=== PATIENT | female | born 1965 | race American Indian/Alaskan Native ===

== ENCOUNTER 2017-08-04 16:49 | Emergency (ER) | payer OTHER ==
[2017-08-04 18:20] LABS: Basophils # (Auto) 0.1 K/mm3 (0.0-0.1); Eosinophils # (Auto) 0.1 K/mm3 (0.0-0.4); Eosinophils % (Auto) 0.8 % (0.0-4.3); Hematocrit 41.1 % (30.3-42.9); Hemoglobin 13.6 gm/dl (10.1-14.3); Lymphocytes # (Auto) 2.2 K/mm3 (1.2-5.4); Mean Corpuscular HGB Conc 33 % (30-34); Mean Corpuscular Hemoglobin 34 pg (28-32); Mean Corpuscular Volume 103 fl (79-97); Monocytes # (Auto) 0.5 K/mm3 (0.0-0.8); Monocytes % (Auto) 6.7 % (0.0-7.3); Platelet Count 285 K/mm3 (140-440); Red Blood Count 3.98 M/mm3 (3.65-5.03); Red Cell Distribution Width 12.7 % (13.2-15.2)
[2017-08-04 18:32] LABS: BUN/Creatinine Ratio 20; Blood Urea Nitrogen 12 mg/dL (7-17); Calcium 9.3 mg/dL (8.4-10.2); Hemolysis Index 3
[2017-08-04 18:37] LABS: Albumin 4.5 g/dL (3.9-5); Bilirubin,Direct 0.3 mg/dL (0-0.2)
[2017-08-04 18:45] LABS: HCG Qualitative,Urine Negative (Negative)
--- NOTE | 2017-08-04 18:48 | Emergency Department Report ---
ED Psych HPI - General Chief Complaint: Psych Stated Complaint: SUCIDAL Time Seen by Provider: 08/04/17 17:56 Source: patient, EMS Mode of arrival: Ambulatory - History of Present Illness Initial Comments: Patient has long history of depression. However she is only taking Wellbutrin for now. She called her therapist and expressed suicidal ideation. She admitted to taking 6 shots last night and 4 shots this morning. She states that she has previously been in detox for alcohol abuse but now does not consistently drink. She admits to binge drinking however. She admits suicidal ideation. She told the police or N nurse that she took an overdose of melatonin. She is not admitting to me any overdose. The patient has had previous psychiatric admissions. 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 MD Complaint: suicidal ideation, feels depressed -: year(s) Associated Psychiatric Symptoms: depression, suicidal ideation History of same: Yes Quality: intermittent Improves With: none Worsens With: none Context: recent alcohol abuse Associated Symptoms: vomiting Treatments Prior to Arrival: none - Related Data Home Medications Medication Instructions Recorded Confirmed Last Taken Wellbutrin 08/04/17 Unknown amLODIPine 08/04/17 Unknown ED Review of Systems ROS: Stated complaint: SUCIDAL Other details as noted in HPI Constitutional: denies: chills, fever Eyes: denies: eye pain, eye discharge, vision change ENT: denies: ear pain, throat pain Respiratory: denies: cough, shortness of breath, wheezing Cardiovascular: denies: chest pain, palpitations Endocrine: no symptoms reported Gastrointestinal: vomiting. denies: abdominal pain, nausea (not currently), diarrhea Genitourinary: denies: urgency, dysuria, discharge Musculoskeletal: denies: back pain, joint swelling, arthralgia Skin: denies: rash, lesions Neurological: denies: headache, weakness, paresthesias Psychiatric: depression, suicidal thoughts. denies: anxiety Hematological/Lymphatic: denies: easy bleeding, easy bruising ED Past Medical Hx - Past Medical History Hx Psychiatric Treatment: Yes - Social History Smoking Status: Current Every Day Smoker Substance Use Type: Alcohol - Medications Home Medications: Home Medications Medication Instructions Recorded Confirmed Last Taken Type Wellbutrin 08/04/17 Unknown History amLODIPine 08/04/17 Unknown History ED Physical Exam - General Limitations: No Limitations General appearance: alert, in no apparent distress, other (tearful) - Head Head exam: Present: atraumatic, normocephalic - Eye Eye exam: Present: normal appearance, PERRL, EOMI. Absent: scleral icterus - ENT ENT exam: Present: mucous membranes moist - Neck Neck exam: Present: normal inspection. Absent: tenderness, meningismus - Respiratory Respiratory exam: Present: normal lung sounds bilaterally. Absent: respiratory distress - Cardiovascular Cardiovascular Exam: Present: regular rate, normal rhythm. Absent: systolic murmur, diastolic murmur, rubs, gallop - GI/Abdominal GI/Abdominal exam: Present: soft, normal bowel sounds. Absent: distended, tenderness, guarding, rebound, rigid - Extremities Exam Extremities exam: Present: normal inspection - Back Exam Back exam: Present: normal inspection - Neurological Exam Neurological exam: Present: alert, oriented X3, CN II-XII intact. Absent: motor sensory deficit - Psychiatric Psychiatric exam: Present: depressed, anxious - Skin Skin exam: Present: warm, dry, intact, normal color. Absent: rash ED Course Vital Signs 08/04/17 17:56 Temperature 98.2 F Pulse Rate 98 H Respiratory 18 Rate Blood Pressure 142/100 O2 Sat by Pulse 97 Oximetry - Reevaluation(s) Reevaluation #1: 1013. Referred to mental health for psychiatric placement. 08/04/17 18:47 ED Medical Decision Making - Lab Data Result diagrams: 08/04/17 18:07 08/04/17 18:07 Laboratory Results - last 24 hr 08/04/17 08/04/17 08/04/17 18:00 18:07 18:07 WBC 7.7 RBC 3.98 Hgb 13.6 Hct 41.1 MCV 103 H MCH 34 H MCHC 33 RDW 12.7 L Plt Count 285 Lymph % (Auto) 28.0 [place] % (Auto) 6.7 Eos % (Auto) 0.8 Baso % (Auto) 1.0 Lymph # 2.2 [place] # 0.5 Eos # 0.1 Baso # 0.1 Seg Neutrophils % 63.5 Seg Neutrophils # 4.9 Sodium 142 Potassium 3.6 Chloride 95.9 L Carbon Dioxide 23 Anion Gap 27 BUN 12 Creatinine 0.6 L Estimated GFR > 60 BUN/Creatinine Ratio 20 Glucose 84 Calcium 9.3 Total Bilirubin Direct Bilirubin Indirect Bilirubin AST ALT Alkaline Phosphatase Total Protein Albumin Albumin/Globulin Ratio TSH Urine HCG, Qual Negative 08/04/17 08/04/17 18:07 18:07 WBC RBC Hgb Hct MCV MCH MCHC RDW Plt Count Lymph % (Auto) [place] % (Auto) Eos % (Auto) Baso % (Auto) Lymph # [place] # Eos # Baso # Seg Neutrophils % Seg Neutrophils # Sodium Potassium Chloride Carbon Dioxide Anion Gap BUN Creatinine Estimated GFR BUN/Creatinine Ratio Glucose Calcium Total Bilirubin 0.50 Direct Bilirubin 0.3 H Indirect Bilirubin 0.2 AST 149 H ALT 107 H Alkaline Phosphatase 64 Total Protein 8.4 H Albumin 4.5 Albumin/Globulin Ratio 1.2 TSH 3.280 Urine HCG, Qual Laboratory Results - last 24 hr 08/04/17 08/04/17 08/04/17 18:00 18:07 18:07 WBC 7.7 RBC 3.98 Hgb 13.6 Hct 41.1 MCV 103 H MCH 34 H MCHC 33 RDW 12.7 L Plt Count 285 Lymph % (Auto) 28.0 [place] % (Auto) 6.7 Eos % (Auto) 0.8 Baso % (Auto) 1.0 Lymph # 2.2 [place] # 0.5 Eos # 0.1 Baso # 0.1 Seg Neutrophils % 63.5 Seg Neutrophils # 4.9 Sodium 142 Potassium 3.6 Chloride 95.9 L Carbon Dioxide 23 Anion Gap 27 BUN 12 Creatinine 0.6 L Estimated GFR > 60 BUN/Creatinine Ratio 20 Glucose 84 Calcium 9.3 Total Bilirubin Direct Bilirubin Indirect Bilirubin AST ALT Alkaline Phosphatase Total Protein Albumin Albumin/Globulin Ratio TSH Urine HCG, Qual Negative Salicylates 08/04/17 08/04/17 08/04/17 18:07 18:07 18:07 WBC RBC Hgb Hct MCV MCH MCHC RDW Plt Count Lymph % (Auto) [place] % (Auto) Eos % (Auto) Baso % (Auto) Lymph # [place] # Eos # Baso # Seg Neutrophils % Seg Neutrophils # Sodium Potassium Chloride Carbon Dioxide Anion Gap BUN Creatinine Estimated GFR BUN/Creatinine Ratio Glucose Calcium Total Bilirubin 0.50 Direct Bilirubin 0.3 H Indirect Bilirubin 0.2 AST 149 H ALT 107 H Alkaline Phosphatase 64 Total Protein 8.4 H Albumin 4.5 Albumin/Globulin Ratio 1.2 TSH 3.280 Urine HCG, Qual Salicylates < 0.3 L Laboratory Results - last 24 hr 08/04/17 08/04/17 08/04/17 18:00 18:07 18:07 WBC 7.7 RBC 3.98 Hgb 13.6 Hct 41.1 MCV 103 H MCH 34 H MCHC 33 RDW 12.7 L Plt Count 285 Lymph % (Auto) 28.0 [place] % (Auto) 6.7 Eos % (Auto) 0.8 Baso % (Auto) 1.0 Lymph # 2.2 [place] # 0.5 Eos # 0.1 Baso # 0.1 Seg Neutrophils % 63.5 Seg Neutrophils # 4.9 Sodium 142 Potassium 3.6 Chloride 95.9 L Carbon Dioxide 23 Anion Gap 27 BUN 12 Creatinine 0.6 L Estimated GFR > 60 BUN/Creatinine Ratio 20 Glucose 84 Calcium 9.3 Total Bilirubin Direct Bilirubin Indirect Bilirubin AST ALT Alkaline Phosphatase Total Protein Albumin Albumin/Globulin Ratio TSH Urine HCG, Qual Negative Salicylates 08/04/17 08/04/17 08/04/17 18:07 18:07 18:07 WBC RBC Hgb Hct MCV MCH MCHC RDW Plt Count Lymph % (Auto) [place] % (Auto) Eos % (Auto) Baso % (Auto) Lymph # [place] # Eos # Baso # Seg Neutrophils % Seg Neutrophils # Sodium Potassium Chloride Carbon Dioxide Anion Gap BUN Creatinine Estimated GFR BUN/Creatinine Ratio Glucose Calcium Total Bilirubin 0.50 Direct Bilirubin 0.3 H Indirect Bilirubin 0.2 AST 149 H ALT 107 H Alkaline Phosphatase 64 Total Protein 8.4 H Albumin 4.5 Albumin/Globulin Ratio 1.2 TSH 3.280 Urine HCG, Qual Salicylates < 0.3 L Laboratory Results - last 24 hr 08/04/17 08/04/17 08/04/17 18:00 18:00 18:07 WBC 7.7 RBC 3.98 Hgb 13.6 Hct 41.1 MCV 103 H MCH 34 H MCHC 33 RDW 12.7 L Plt Count 285 Lymph % (Auto) 28.0 [place] % (Auto) 6.7 Eos % (Auto) 0.8 Baso % (Auto) 1.0 Lymph # 2.2 [place] # 0.5 Eos # 0.1 Baso # 0.1 Seg Neutrophils % 63.5 Seg Neutrophils # 4.9 Sodium Potassium Chloride Carbon Dioxide Anion Gap BUN Creatinine Estimated GFR BUN/Creatinine Ratio Glucose Calcium Total Bilirubin Direct Bilirubin Indirect Bilirubin AST ALT Alkaline Phosphatase Total Protein Albumin Albumin/Globulin Ratio TSH Urine Color Yellow Urine Turbidity Clear Urine pH 6.0 Ur Specific [place] 1.017 Urine Protein 30 mg/dl Urine Glucose (UA) Neg Urine Ketones Tr Urine Blood Sm Urine Nitrite Neg Ur Reducing Substances Not Reportable Urine Bilirubin Mod Urine Ictotest Positive Urine Urobilinogen 4.0 Ur Leukocyte Esterase Tr Urine WBC (Auto) 4.0 Urine RBC (Auto) 3.0 U Epithel Cells (Auto) 6.0 Urine Bacteria (Auto) 1+ Urine Mucus Few Urine Yeast (Budding) Few Urine HCG, Qual Negative Salicylates Urine Opiates Screen Presumptive negative Urine Methadone Screen Presumptive negative Acetaminophen Ur Barbiturates Screen Presumptive negative Ur Phencyclidine Scrn Presumptive negative Ur Amphetamines Screen Presumptive negative U Benzodiazepines Scrn Presumptive negative Urine Cocaine Screen Presumptive negative U Marijuana (THC) Screen Presumptive negative Drugs of Abuse Note Disclamer Plasma/Serum Alcohol 08/04/17 08/04/17 08/04/17 18:07 18:07 18:07 WBC RBC Hgb Hct MCV MCH MCHC RDW Plt Count Lymph % (Auto) [place] % (Auto) Eos % (Auto) Baso % (Auto) Lymph # [place] # Eos # Baso # Seg Neutrophils % Seg Neutrophils # Sodium 142 Potassium 3.6 Chloride 95.9 L Carbon Dioxide 23 Anion Gap 27 BUN 12 Creatinine 0.6 L Estimated GFR > 60 BUN/Creatinine Ratio 20 Glucose 84 Calcium 9.3 Total Bilirubin Direct Bilirubin Indirect Bilirubin AST ALT Alkaline Phosphatase Total Protein Albumin Albumin/Globulin Ratio TSH Urine Color Urine Turbidity Urine pH Ur Specific [place] Urine Protein Urine Glucose (UA) Urine Ketones Urine Blood Urine Nitrite Ur Reducing Substances Urine Bilirubin Urine Ictotest Urine Urobilinogen Ur Leukocyte Esterase Urine WBC (Auto) Urine RBC (Auto) U Epithel Cells (Auto) Urine Bacteria (Auto) Urine Mucus Urine Yeast (Budding) Urine HCG, Qual Salicylates < 0.3 L Urine Opiates Screen Urine Methadone Screen Acetaminophen < 5.0 L Ur Barbiturates Screen Ur Phencyclidine Scrn Ur Amphetamines Screen U Benzodiazepines Scrn Urine Cocaine Screen U Marijuana (THC) Screen Drugs of Abuse Note Plasma/Serum Alcohol 08/04/17 08/04/17 08/04/17 18:07 18:07 18:07 WBC RBC Hgb Hct MCV MCH MCHC RDW Plt Count Lymph % (Auto) [place] % (Auto) Eos % (Auto) Baso % (Auto) Lymph # [place] # Eos # Baso # Seg Neutrophils % Seg Neutrophils # Sodium Potassium Chloride Carbon Dioxide Anion Gap BUN Creatinine Estimated GFR BUN/Creatinine Ratio Glucose Calcium Total Bilirubin 0.50 Direct Bilirubin 0.3 H Indirect Bilirubin 0.2 AST 149 H ALT 107 H Alkaline Phosphatase 64 Total Protein 8.4 H Albumin 4.5 Albumin/Globulin Ratio 1.2 TSH 3.280 Urine Color Urine Turbidity Urine pH Ur Specific [place] Urine Protein Urine Glucose (UA) Urine Ketones Urine Blood Urine Nitrite Ur Reducing Substances Urine Bilirubin Urine Ictotest Urine Urobilinogen Ur Leukocyte Esterase Urine WBC (Auto) Urine RBC (Auto) U Epithel Cells (Auto) Urine Bacteria (Auto) Urine Mucus Urine Yeast (Budding) Urine HCG, Qual Salicylates Urine Opiates Screen Urine Methadone Screen Acetaminophen Ur Barbiturates Screen Ur Phencyclidine Scrn Ur Amphetamines Screen U Benzodiazepines Scrn Urine Cocaine Screen U Marijuana (THC) Screen Drugs of Abuse Note Plasma/Serum Alcohol 0.31 H Critical care attestation.: If time is entered above; I have spent that time in minutes in the direct care of this critically ill patient, excluding procedure time. ED Disposition Clinical Impression: Suicidal ideation, Alcohol abuse, Elevated transaminase level Depression Qualifiers: Depression Type: major depressive disorder Major depression recurrence: recurrent Active/Remission status: currently active Major depression episode severity: severe Psychotic features: without psychotic features Qualified Code(s ): F33.2 - Major depressive disorder, recurrent severe without psychotic features Disposition: DC/TX-65 PSY HOSP/PSY UNIT Is pt being admited?: No Does the pt Need Aspirin: No Condition: Stable Time of Disposition: 19:48
[2017-08-04 19:04] LABS: Bacteria,Urine 1+ /HPF (Negative); Mucus,Urine FEW /HPF
[2017-08-04 19:08] LABS: Bilirubin,Urine MOD (Negative); Blood,Urine SM (Negative); Color,Urine Yellow (Yellow)
[2017-08-04 19:20] LABS: Amphetamine Screen,Urine PRESUMPTIVE NEGATIVE; Benzodiazepines Screen,Urine PRESUMPTIVE NEGATIVE; Cannabinoid Screen,Urine PRESUMPTIVE NEGATIVE; Cocaine Screen,Urine PRESUMPTIVE NEGATIVE; Methadone Screen,Urine PRESUMPTIVE NEGATIVE; Opiate Screen,Urine PRESUMPTIVE NEGATIVE
[2017-08-04 19:22] LABS: Ictotest,Urine Positive (Negative)
[2017-08-04] MEDS ORDERED: MILK OF MAGNESIA PO PRN (19:44)
[2017-08-04] MEDS ORDERED: TYLENOL PO PRN (19:44)
[2017-08-04] MEDS ORDERED: ALUM-MAG HYDROX-SIMETH 200-200-20MG/5ML PO PRN (19:44)
[2017-08-05] MEDS ORDERED: PEPCID PO PRN (00:19)
[2017-08-05] MEDS: ZOFRAN IV PRN (04:44)
[2017-08-05] MEDS: ATIVAN PO PRN ×3 (04:44→22:50)
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
[2017-08-06] MEDS: ATIVAN PO PRN ×2 (14:33→21:05)
[2017-08-06] MEDS ORDERED: TYLENOL PO ONE (17:25)
[2017-08-06 19:06] LABS: Alanine Aminotransferase 83 units/L (7-56); Albumin 4.1 g/dL (3.9-5); BUN/Creatinine Ratio 16; Blood Urea Nitrogen 11 mg/dL (7-17); Calcium 9.6 mg/dL (8.4-10.2); Hemolysis Index 0
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
[2017-08-06] MEDS: ZOFRAN IV PRN (21:10)
--- NOTE | 2017-08-07 13:17 | Progress Note ---
Subjective - Reason for Consult Consult date: 08/07/17 Reason for consult: Psychiatry Follow-up - Chief Complaint Chief complaint: "I need help" 51 year old AA female present to the ER for suicidal ideation, alcohol intoxication, and taking multiple melatonin. Today the patient is calm and cooperative, but withdrawn during the assessment. She stated that she has a lot going on with her life. She acknowledged a hx depression. She could not confirm or deny SI's when asked. She stated that her alcohol consumption has increased the past few months. She stated, "I need help seriously." She denies HI's and AVH's. She stated that she is sleeping "okay." She stated that she don't mind starting Zoloft, a home medication she took in the past. Mental Status Exam - Vital signs Last Vital Signs Temp 98.5 F 08/06/17 22:00 Pulse 92 H 08/06/17 22:00 Resp 18 08/06/17 22:00 BP 148/98 08/06/17 22:00 Pulse Ox 100 08/06/17 22:00 - Exam Narrative exam: MSE: Appearance: calm, cooperative Behavior: regular eye contact Speech: regular rate and tone Mood: "depressed" withdrawn Affect: congruent to mood Thought Process: circumstantial Thought Content: denies HI's and AVH's, cannot confirm or deny SI's Motor Activity: sitting up in bed Cognition: A/O x3 Insight: variable Judgment: variable Assessment and Plan Impression: MDD, recurrent Severe Type. Hx of PTSD. Alcohol use DO. Today the patient is calm and cooperative, but withdrawn during the assessment. DDx: R/O Bipolar DO, Alcohol Induced Mood DO Recommendation/Plan: Continue 1013 with pending placement to [facility]. Start Zoloft 50 mg PO daily for depression/PTSD. Discussed possible suicidality/ medication induced bon with patient reference Zoloft.
[2017-08-07] MEDS: ZOLOFT PO SCH (15:30)
[2017-08-07] MEDS: ATIVAN PO PRN (15:55)
--- NOTE | 2017-08-08 10:57 | Progress Note ---
Subjective - Reason for Consult Consult date: 08/08/17 Reason for consult: Psychiatry Follow-up - Chief Complaint Chief complaint: "Why me" 51 year old AA female present to the ER for suicidal ideation, alcohol intoxication, and taking multiple melatonin. Today the patient is calm and cooperative, but still withdrawn during the assessment. She stated that it's hard dealing with her current situation. She stated she don't know what to do at this time to lessen her worries. She cannot confirm or deny SI's when asked. She denies HI's and AVH's. She denies any side effects of her medications. Mental Status Exam - Vital signs Last Vital Signs Temp 98 F 08/07/17 22:31 Pulse 87 08/08/17 06:25 Resp 18 08/08/17 06:26 BP 143/79 08/08/17 06:25 Pulse Ox 98 08/07/17 22:35 - Exam Narrative exam: MSE: Appearance: calm, cooperative Behavior: regular eye contact Speech: regular rate and tone Mood: "depressed" withdrawn, emotional Affect: congruent to mood Thought Process: circumstantial Thought Content: denies HI's and AVH's, cannot confirm or deny SI's Motor Activity: sitting up in bed Cognition: A/O x3 Insight: variable Judgment: variable Assessment and Plan Impression: MDD, recurrent Severe Type. Hx of PTSD. Alcohol use DO. Today the patient is calm and cooperative, but withdrawn during the assessment. DDx: R/O Bipolar DO, Alcohol Induced Mood DO Recommendation/Plan: Continue 1013 with placement to inpatient psy services. Continue Zoloft 50 mg PO daily for depression/PTSD. Discussed possible suicidality/medication induced bon with patient reference Zoloft.
[2017-08-08] MEDS ORDERED: ZOFRAN ODT PO ONE (11:12)
[2017-08-08] MEDS: ZOLOFT PO SCH (11:30)
[2017-08-08] MEDS: ATIVAN PO PRN (11:31)
[2017-08-08 11:48] VITALS: BP 150/99
== END 2017-08-08 13:22 ==
LOC: EEVIPCON 16:49 → ED 16:49
DX: T50.992A Poisoning by other drugs, medicaments and biological substances, intentional self-harm, initial encounter (principal); F32.9 Major depressive disorder, single episode, unspecified; R74.0 Nonspecific elevation of levels of transaminase and lactic acid dehydrogenase [LDH]; F17.200 Nicotine dependence, unspecified, uncomplicated; F10.10 Alcohol abuse, uncomplicated; Y92.89 Other specified places as the place of occurrence of the external cause
CPT/HCPCS: 36415; 80048; 80053; 80074; 80307; 81001; 81025; 82140; 84443; 85025; 96374; 99285; G0480; J2405; 80320; Q0162

== ENCOUNTER 2019-08-13 05:29 | Emergency (ER) | payer OTHER ==
[2019-08-13] MEDS ORDERED: KETOROLAC 30 MG/1 ML INJ ONE (05:41)
[2019-08-13] MEDS ORDERED: KETOROLAC 30 MG/1 ML INJ IV ONE (05:51)
[2019-08-13] MEDS ORDERED: MORPHINE 4 MG/1 ML INJ IV ONE ×2 (06:03→07:38)
[2019-08-13] MEDS ORDERED: ONDANSETRON 4 MG/2 ML INJ IV ONE (06:05)
[2019-08-13 06:06] LABS: Basophils # (Auto) 0.1 K/mm3 (0.0-0.1); Basophils % (Auto) 0.6 % (0.0-1.8); Eosinophils # (Auto) 0.1 K/mm3 (0.0-0.4); Hematocrit 40.2 % (30.3-42.9); Hemoglobin 13.4 gm/dl (10.1-14.3); Lymphocytes % (Auto) 25.1 % (13.4-35.0); Mean Corpuscular HGB Conc 33 % (30-34); Mean Corpuscular Volume 100 fl (79-97); Monocytes # (Auto) 0.5 K/mm3 (0.0-0.8); Monocytes % (Auto) 3.9 % (0.0-7.3); Platelet Count 411 K/mm3 (140-440); Red Cell Distribution Width 11.7 % (13.2-15.2)
[2019-08-13] MEDS ORDERED: ONDANSETRON 4 MG/2 ML INJ ONE (06:06)
--- NOTE | 2019-08-13 06:23 | XRay Report ---
ABDOMEN 2 VIEWS INDICATION / CLINICAL INFORMATION: LLQ abd pain. COMPARISON: None available. FINDINGS: Nonspecific bowel gas pattern. No evidence of obstruction or pneumoperitoneum. Signer Name: Blake Feldman MD FACR Signed: 08/13/2019 6:18 AM Workstation Name: [id number]
[2019-08-13 06:25] LABS: Alanine Aminotransferase 15 units/L (7-56); Albumin 4.5 g/dL (3.9-5); BUN/Creatinine Ratio 16; Blood Urea Nitrogen 11 mg/dL (7-17); Calcium 9.1 mg/dL (8.4-10.2); Hemolysis Index 15
--- NOTE | 2019-08-13 07:02 | Emergency Department Report ---
Chief Complaint: Back Pain/Injury Stated Complaint: KIDNEY STONES - HPI History of Present Illness: Patient presents with a for the left lower quadrant abdominal pain. She denies any fever, nausea, vomiting, diarrhea, vaginal bleeding or discharge. History of alcohol abuse. - Exam Vital Signs: Vital Signs 08/13/19 08/13/19 08/13/19 05:39 05:52 05:53 Temperature 97.6 F Pulse Rate 96 H Respiratory 20 18 Rate Blood Pressure 159/97 O2 Sat by Pulse 98 100 Oximetry 08/13/19 08/13/19 08/13/19 06:00 06:07 06:10 Temperature Pulse Rate Respiratory 18 Rate Blood Pressure 151/104 163/103 O2 Sat by Pulse 98 99 Oximetry 08/13/19 06:20 Temperature Pulse Rate Respiratory Rate Blood Pressure 138/84 O2 Sat by Pulse 89 Oximetry MSE screening note: Focused history and physical exam performed. Due to findings the following was ordered: Patient given a dose of Toradol and morphine. CBC and metabolic panel are unremarkable. Lipase is slightly elevated. Awaiting urine sample for urinalysis. CT scan of the abdomen and pelvis has been ordered. Abdominal x-ray shows nonspecific nonobstructive bowel gas ED Medical Decision Making - Lab Data Result diagrams: 08/13/19 05:50 08/13/19 05:50 ED Disposition for MSE Condition: Stable Referrals: PRIMARY CARE, [Primary Care Provider] - 3-5 Days
--- NOTE | 2019-08-13 07:37 | Cat Scan Report ---
CT abdomen pelvis wo con INDICATION / CLINICAL INFORMATION: Pt complains of L.L.Q. abdominal pain. TECHNIQUE: All CT scans at this location are performed using CT dose reduction for ALARA by means of automated e xposure control. COMPARISON: None available. FINDINGS: No free fluid is seen in the abdomen. The liver, spleen, kidneys, pancreas, adrenal glands and great vessels are normal. No enlarged mesenteric or retroperitoneal lymph nodes are identified In the pelvis, no free fluid is seen. No enlarged lymph nodes are identified. The bladder and the monika endix are normal. No significant skeletal abnormality is seen IMPRESSION: Negative CT abdomen and pelvis. No acute findings Signer Name: Blake Feldman MD FACR Signed: 08/13/2019 7:33 AM Workstation Name: [id number]
[2019-08-13] MEDS ORDERED: oxyCODONE /ACETAMINOPHEN 5-325MG TAB PO ONE ×2 (07:38→10:23)
--- NOTE | 2019-08-13 07:41 | Emergency Department Report ---
ED Abdominal Pain HPI - General Chief Complaint: Back Pain/Injury Stated Complaint: KIDNEY STONES Time Seen by Provider: 08/13/19 07:37 Source: patient, EMS Mode of arrival: Stretcher Limitations: No Limitations - History of Present Illness Initial Comments: This is a 53-year-old female with history of depression. She presents with left lower quadrant pain which began this morning. Sharp left lower quadrant pain which does not radiate. Severe. She has had soft stools. No fever. No recent travel. No nausea vomiting. She has been in detox for alcohol abuse on previous occasion. MD Complaint: abdominal pain -: Sudden, This morning Location: LLQ Radiation: none Severity: severe Severity scale (0 -10): 0 Quality: sharp Consistency: constant Improves With: nothing Worsens With: nothing Associated Symptoms: other (Soft stools) - Related Data Home Medications Medication Instructions Recorded Confirmed Last Taken Wellbutrin 75 mg PO DAILY 08/04/17 08/05/17 Unknown amLODIPine 10 mg PO DAILY 08/04/17 08/05/17 Unknown Previous Rx's Medication Instructions Recorded Last Taken Type HYDROcodone/APAP 5-325 [[place] 1 each PO Q6HR PRN #10 tablet 08/13/19 Unknown Rx 5/325] Allergies Allergy/AdvReac Type Severity Reaction Status Date / Time No Known Allergies Allergy Verified 08/05/17 00:18 ED Review of Systems ROS: Stated complaint: KIDNEY STONES Other details as noted in HPI Comment: All other systems reviewed and negative Constitutional: denies: fever, malaise Respiratory: denies: cough Cardiovascular: denies: chest pain Gastrointestinal: abdominal pain. denies: nausea, vomiting ED Past Medical Hx - Past Medical History Previous Medical History?: Yes Hx Hypertension: Yes Hx Psychiatric Treatment: Yes - Social History Smoking Status: Current Every Day Smoker Substance Use Type: Alcohol - Medications Home Medications: Home Medications Medication Instructions Recorded Confirmed Last Taken Type Wellbutrin 75 mg PO DAILY 08/04/17 08/05/17 Unknown History amLODIPine 10 mg PO DAILY 08/04/17 08/05/17 Unknown History HYDROcodone/APAP 5-325 [[place] 1 each PO Q6HR PRN #10 tablet 08/13/19 Unknown Rx 5/325] ED Physical Exam - General Limitations: No Limitations General appearance: alert, other (bent over in pain holding her abdomen) - Head Head exam: Present: atraumatic, normocephalic - Eye Eye exam: Present: normal appearance - ENT ENT exam: Present: mucous membranes moist - Neck Neck exam: Present: normal inspection - Respiratory Respiratory exam: Present: normal lung sounds bilaterally. Absent: respiratory distress, wheezes, rales, rhonchi - Cardiovascular Cardiovascular Exam: Present: regular rate, normal rhythm, normal heart sounds. Absent: systolic murmur, diastolic murmur, rubs, gallop - GI/Abdominal GI/Abdominal exam: Present: soft, normal bowel sounds. Absent: distended, tenderness, guarding, rebound - Extremities Exam Extremities exam: Present: normal inspection - Back Exam Back exam: Present: normal inspection - Neurological Exam Neurological exam: Present: alert, oriented X3 - Psychiatric Psychiatric exam: Present: normal affect, normal mood - Skin Skin exam: Present: warm, dry, intact, normal color. Absent: rash ED Course Vital Signs 08/13/19 08/13/19 08/13/19 05:39 05:52 05:53 Temperature 97.6 F Pulse Rate 96 H Respiratory 20 18 Rate Blood Pressure 159/97 Blood Pressure [Left] O2 Sat by Pulse 98 100 Oximetry 08/13/19 08/13/19 08/13/19 06:00 06:07 06:10 Temperature Pulse Rate Respiratory 18 Rate Blood Pressure 151/104 163/103 Blood Pressure [Left] O2 Sat by Pulse 98 99 Oximetry 08/13/19 08/13/19 08/13/19 06:20 06:30 07:30 Temperature 98.0 F Pulse Rate 100 H Respiratory 12 Rate Blood Pressure 138/84 127/79 Blood Pressure 136/89 [Left] O2 Sat by Pulse 89 93 96 Oximetry 08/13/19 08/13/19 08/13/19 07:59 08:13 08:15 Temperature Pulse Rate Respiratory 16 16 Rate Blood Pressure 136/89 Blood Pressure [Left] O2 Sat by Pulse Oximetry 08/13/19 08/13/19 08:30 09:00 Temperature Pulse Rate 84 80 Respiratory 16 19 Rate Blood Pressure 136/89 136/89 Blood Pressure [Left] O2 Sat by Pulse 90 93 Oximetry ED Medical Decision Making - Lab Data Result diagrams: 08/13/19 05:50 08/13/19 05:50 Laboratory Results - last 24 hr 08/13/19 08/13/19 08/13/19 05:50 05:50 06:51 WBC 11.8 H RBC 4.00 Hgb 13.4 Hct 40.2 MCV 100 H MCH 33 H MCHC 33 RDW 11.7 L Plt Count 411 Lymph % (Auto) 25.1 [place] % (Auto) 3.9 Eos % (Auto) 1.0 Baso % (Auto) 0.6 Lymph # 3.0 [place] # 0.5 Eos # 0.1 Baso # 0.1 Seg Neutrophils % 69.4 Seg Neutrophils # 8.2 H Sodium 145 Potassium 4.1 Chloride 105.5 Carbon Dioxide 22 Anion Gap 22 BUN 11 Creatinine 0.7 Estimated GFR > 60 BUN/Creatinine Ratio 16 Glucose 98 Calcium 9.1 Total Bilirubin < 0.20 AST 21 ALT 15 Alkaline Phosphatase 58 Total Protein 7.5 Albumin 4.5 Albumin/Globulin Ratio 1.5 Lipase 68 H Urine Color Urine Turbidity Urine pH Ur Specific [place] Urine Protein Urine Glucose (UA) Urine Ketones Urine Blood Urine Nitrite Urine Bilirubin Urine Urobilinogen Ur Leukocyte Esterase Urine WBC (Auto) Urine RBC (Auto) U Epithel Cells (Auto) Urine Bacteria (Auto) Hyaline Casts Granular Casts Urine Mucus Plasma/Serum Alcohol 0.22 H 08/13/19 Unknown WBC RBC Hgb Hct MCV MCH MCHC RDW Plt Count Lymph % (Auto) [place] % (Auto) Eos % (Auto) Baso % (Auto) Lymph # [place] # Eos # Baso # Seg Neutrophils % Seg Neutrophils # Sodium Potassium Chloride Carbon Dioxide Anion Gap BUN Creatinine Estimated GFR BUN/Creatinine Ratio Glucose Calcium Total Bilirubin AST ALT Alkaline Phosphatase Total Protein Albumin Albumin/Globulin Ratio Lipase Urine Color Yellow Urine Turbidity Slightly-cloudy Urine pH 5.0 Ur Specific [place] 1.021 Urine Protein 100 mg/dl Urine Glucose (UA) Neg Urine Ketones Neg Urine Blood Mod Urine Nitrite Neg Urine Bilirubin Neg Urine Urobilinogen < 2.0 Ur Leukocyte Esterase Tr Urine WBC (Auto) 8.0 H Urine RBC (Auto) 5.0 U Epithel Cells (Auto) 7.0 Urine Bacteria (Auto) 2+ Hyaline Casts 1 Granular Casts 4 Urine Mucus 3+ Plasma/Serum Alcohol - Radiology Data Radiology results: report reviewed CT abdomen pelvis: No acute process - Medical Decision Making Left lower quadrant pain without indication of colitis, diverticulitis, renal colic or acute intra-abdominal pelvic process. Differential could include abdo sandra wall strain. Blood alcohol level elevated. Patient discharged home with prescription for Nor co Critical care attestation.: If time is entered above; I have spent that time in minutes in the direct care of this critically ill patient, excluding procedure time. ED Disposition Clinical Impression: Abdominal pain Disposition: DC-01 TO HOME OR SELFCARE Is pt being admited?: No Does the pt Need Aspirin: No Condition: Stable Instructions: Abdominal Pain (ED) Prescriptions: HYDROcodone/APAP 5-325 [[place] 5/325] 1 each PO Q6HR PRN #10 tablet PRN Reason: Pain Referrals: MARÍA ARTIS MD [Staff Physician] - 3-5 Days
[2019-08-13 07:46] LABS: Bacteria,Urine 2+ /HPF (Negative); Bilirubin,Urine NEG (Negative); Blood,Urine MOD (Negative); Color,Urine Yellow (Yellow); Granular Casts,Urine 4 /LPF; Hyaline Casts,Urine 1 /LPF; Mucus,Urine 3+ /HPF; Urobilinogen,Urine < 2.0 mg/dL (<2.0)
[2019-08-13 11:32] VITALS: BP 129/93
== END 2019-08-13 10:44 | disposition home or self-care (01) ==
LOC: ED 05:29
DX: R10.32 Left lower quadrant pain (principal)
CPT/HCPCS: 36415; 74019; 74176; 80053; 81001; 83690; 85025; 96374; 96375; 96376; 99285; J1885; J2270; J2405; 80320; G0480

== ENCOUNTER 2019-08-24 08:18 | Emergency (ER) | payer OTHER ==
[2019-08-24] MEDS ORDERED: cloNIDine 0.2 MG TAB PO ONE (08:46)
[2019-08-24] MEDS ORDERED: ONDANSETRON 4 MG/2 ML INJ IM ONE (08:52)
[2019-08-24] MEDS ORDERED: MORPHINE 4 MG/1 ML INJ IM ONE (08:52)
--- NOTE | 2019-08-24 09:14 | Emergency Department Report ---
ED General Adult HPI - General Chief complaint: Back Pain/Injury Stated complaint: BACK Time Seen by Provider: 08/24/19 08:55 Source: patient Mode of arrival: Ambulatory Limitations: No Limitations - History of Present Illness Initial comments: Patient is 53 years old female with history of hypertension. Patient presented to the ER complaining of lower back pain for the last 2 weeks. Patient was seen here 1 week ago had a negative CT abdomen and pelvis. Patient stated that her pain remained the same with no improvement. Patient denied any fever or chills. Patient denied any lower extremity weakness, numbness or tingling sensation. No bowel bladder incontinence. Patient also denied any recent trauma. Patient found to have a blood pressure of 193/113. Patient stated that she was not able to take her medication because of pain. Patient denied any chest pain or shortness of breath. No headache Severity scale (0 -10): 10 - Related Data Home Medications Medication Instructions Recorded Confirmed Last Taken Wellbutrin 75 mg PO DAILY 08/04/17 08/05/17 Unknown amLODIPine 10 mg PO DAILY 08/04/17 08/05/17 Unknown Previous Rx's Medication Instructions Recorded Last Taken Type HYDROcodone/APAP 5-325 [[place] 1 each PO Q6HR PRN #10 tablet 08/13/19 Unknown Rx 5/325] Allergies Allergy/AdvReac Type Severity Reaction Status Date / Time No Known Allergies Allergy Verified 08/05/17 00:18 ED Review of Systems ROS: Stated complaint: BACK Other details as noted in HPI Comment: All other systems reviewed and negative Constitutional: denies: chills, fever Respiratory: denies: cough, shortness of breath, SOB with exertion Cardiovascular: denies: chest pain, palpitations Gastrointestinal: denies: abdominal pain, nausea, vomiting Musculoskeletal: back pain. denies: joint swelling, arthralgia Neurological: denies: headache, weakness, numbness, paresthesias, confusion ED Past Medical Hx - Past Medical History Previous Medical History?: Yes Hx Hypertension: Yes Hx Psychiatric Treatment: Yes Additional medical history: Back pain - Surgical History Past Surgical History?: No - Social History Smoking Status: Current Every Day Smoker Substance Use Type: Alcohol, Prescribed - Medications Home Medications: Home Medications Medication Instructions Recorded Confirmed Last Taken Type Wellbutrin 75 mg PO DAILY 08/04/17 08/05/17 Unknown History amLODIPine 10 mg PO DAILY 08/04/17 08/05/17 Unknown History HYDROcodone/APAP 5-325 [[place] 1 each PO Q6HR PRN #10 tablet 08/13/19 Unknown Rx 5/325] ED Physical Exam - General Limitations: No Limitations General appearance: alert, in no apparent distress - Head Head exam: Present: atraumatic, normocephalic, normal inspection - Eye Eye exam: Present: normal appearance - ENT ENT exam: Present: normal exam, normal orophraynx, mucous membranes moist - Neck Neck exam: Present: normal inspection, full ROM. Absent: tenderness, meningismus - Respiratory Respiratory exam: Present: normal lung sounds bilaterally. Absent: respiratory distress, wheezes, rales, rhonchi, stridor, chest wall tenderness, accessory muscle use, decreased breath sounds, prolonged expiratory - Cardiovascular Cardiovascular Exam: Present: regular rate, normal rhythm, normal heart sounds - GI/Abdominal GI/Abdominal exam: Present: soft, normal bowel sounds. Absent: distended, tenderness, guarding, rebound, rigid, organomegaly, mass, bruit, pulsatile mass, hernia - Extremities Exam Extremities exam: Present: normal inspection, full ROM, normal capillary refill. Absent: tenderness, pedal edema, calf tenderness - Back Exam Back exam: Present: normal inspection, full ROM. Absent: CVA tenderness (R), CVA tenderness (L) - Neurological Exam Neurological exam: Present: alert, oriented X3, CN II-XII intact - Psychiatric Psychiatric exam: Present: normal mood - Skin Skin exam: Present: warm, intact, normal color ED Course Vital Signs 08/24/19 08/24/19 08/24/19 08:20 08:36 08:43 Temperature 98.2 F Pulse Rate 118 H 89 85 Respiratory 18 16 17 Rate Blood Pressure 193/113 Blood Pressure 185/116 [Left] O2 Sat by Pulse 98 99 Oximetry 08/24/19 08/24/19 08/24/19 08:45 08:51 08:58 Temperature Pulse Rate 89 90 Respiratory 11 L 16 Rate Blood Pressure 193/120 193/120 Blood Pressure [Left] O2 Sat by Pulse 97 Oximetry 08/24/19 08/24/19 08/24/19 09:00 09:15 09:24 Temperature Pulse Rate 105 H 83 Respiratory 22 8 L Rate Blood Pressure Blood Pressure 162/94 [Left] O2 Sat by Pulse 100 96 Oximetry 08/24/19 08/24/19 08/24/19 09:28 09:31 09:45 Temperature Pulse Rate 85 80 Respiratory 12 19 17 Rate Blood Pressure 170/87 170/87 Blood Pressure [Left] O2 Sat by Pulse 97 96 Oximetry 08/24/19 08/24/19 08/24/19 10:01 10:15 10:30 Temperature Pulse Rate 82 84 70 Respiratory 15 17 17 Rate Blood Pressure 115/80 112/70 110/66 Blood Pressure [Left] O2 Sat by Pulse 94 96 Oximetry 08/24/19 11:46 Temperature Pulse Rate 78 Respiratory 18 Rate Blood Pressure Blood Pressure 102/79 [Left] O2 Sat by Pulse 96 Oximetry ED Medical Decision Making - Lab Data Result diagrams: 08/24/19 11:19 08/24/19 09:00 - Medical Decision Making Patient is 53 years old female with history of hypertension. Patient presented to the ER complaining of lower back pain for the last 2 weeks. Patient was seen here 1 week ago had a negative CT abdomen and pelvis. Patient stated that her pain remained the same with no improvement. Patient denied any fever or chills. Patient denied any lower extremity weakness, numbness or tingling sensation. No bowel bladder incontinence. Patient also denied any recent trauma. Patient found to have a blood pressure of 193/113. Patient stated that she was not able to take her medication because of pain. Patient denied any chest pain or shortness of breath. No headache Patient received morphine, Zofran and Decadron. Patient stated that she is feeling much better. Labs reviewed and is unremarkable. Patient symptoms is most likely consistent with sciatica. Patient given prescription for prednisone pack and advised to follow-up with her primary care physician for further management including an MRI of the lumbar spine and also advised to return to the ER if she develop any new symptoms. Critical care attestation.: If time is entered above; I have spent that time in minutes in the direct care of this critically ill patient, excluding procedure time. ED Disposition Clinical Impression: Acute back pain Disposition: DC-01 TO HOME OR SELFCARE Is pt being admited?: No Condition: Stable Instructions: Back Pain (ED), Sciatica (ED) Referrals: MADELINE CALIXTO MD [Primary Care Provider] - 3-5 Days
[2019-08-24 09:52] LABS: BUN/Creatinine Ratio 28; Blood Urea Nitrogen 14 mg/dL (7-17); Calcium 9.4 mg/dL (8.4-10.2); Hemolysis Index 19
[2019-08-24] MEDS ORDERED: dexAMETHasone 20 MG/5 ML VIAL IM ONE (11:15)
[2019-08-24 11:47] VITALS: BP 102/79
[2019-08-24 11:49] LABS: Basophils # (Auto) 0.1 K/mm3 (0.0-0.1); Basophils % (Auto) 1.3 % (0.0-1.8); Eosinophils % (Auto) 0.7 % (0.0-4.3); Hematocrit 35.1 % (30.3-42.9); Hemoglobin 11.7 gm/dl (10.1-14.3); Lymphocytes # (Auto) 1.7 K/mm3 (1.2-5.4); Lymphocytes % (Auto) 26.7 % (13.4-35.0); Mean Corpuscular HGB Conc 33 % (30-34); Mean Corpuscular Volume 102 fl (79-97); Monocytes # (Auto) 0.4 K/mm3 (0.0-0.8); Monocytes % (Auto) 6.2 % (0.0-7.3); Platelet Count 256 K/mm3 (140-440); Red Blood Count 3.45 M/mm3 (3.65-5.03); Red Cell Distribution Width 12.2 % (13.2-15.2)
[2019-08-24 13:04] LABS: Bilirubin,Urine NEG (Negative); Blood,Urine SM (Negative); Color,Urine Amber (Yellow); Mucus,Urine 3+ /HPF
== END 2019-08-24 12:45 | disposition home or self-care (01) ==
LOC: ED 08:18
DX: M54.5 Low back pain (principal); I10 Essential (primary) hypertension; F17.200 Nicotine dependence, unspecified, uncomplicated
CPT/HCPCS: 36415; 80048; 81001; 85025; 96372; 99283; J1100; J2270; J2405

== ENCOUNTER 2019-08-27 14:15 | Emergency (ER) | payer OTHER ==
[2019-08-27 14:28] VITALS: BP 169/107
[2019-08-27] MEDS ORDERED: KETOROLAC 60 MG/2 ML INJ IM ONE (14:48)
[2019-08-27] MEDS ORDERED: predniSONE 20 MG TAB PO ONE (14:48)
--- NOTE | 2019-08-27 15:10 | Emergency Department Report ---
ED Back Pain/Injury HPI - General Chief Complaint: Back Pain/Injury Stated Complaint: BACK PAIN Time Seen by Provider: 08/27/19 14:33 Source: patient Limitations: No Limitations - History of Present Illness Initial Comments: This is a 53-year-old female nontoxic, well nourished in appearance, no acute signs of distress presents to the ED with c/o of acute on chronic lower back pain. Patient stated that the past 2 days he was moving and developed this pain. Patient states has history of sciatica nerve pain which is similar symptoms as today. Patient states that pain radiates through to his left lower extremity. Patient denies any trauma. Denies any bladder or bowel instability. Patient denies any urinary symptoms. Denies any fever, chills, nausea, vomiting, headache, stiff neck, chest pain or shortness of breath. Patient denies any numbness or tingling. Denies any allergies. MD Complaint: back pain -: days(s) Similar Symptoms Previously: Yes Radiation: left leg Severity: mild Severity scale (0 -10): 8 Quality: aching Consistency: intermittent Improves With: immobilization, sitting upright Worsens With: movement, walking Associated Symptoms: denies other symptoms. denies: confusion, weakness, chest pain, numbness, difficulty walking, cough, difficulty urinating, diaphoresis, incontinence, fever/chills, constipation, headaches, abdominal pain, loss of appetite, malaise, nausea/vomiting, rash, seizure, shortness of breath, syncope - Related Data Home Medications Medication Instructions Recorded Confirmed Last Taken Wellbutrin 75 mg PO DAILY 08/04/17 08/05/17 Unknown amLODIPine 10 mg PO DAILY 08/04/17 08/05/17 Unknown Previous Rx's Medication Instructions Recorded Last Taken Type HYDROcodone/APAP 5-325 [[place] 1 each PO Q6HR PRN #10 tablet 08/13/19 Unknown Rx 5/325] Ondansetron [Zofran Odt] 4 mg PO Q8HR PRN #20 tab.rapdis 08/24/19 Unknown Rx Prednisone [predniSONE 10 mg 10 mg PO .TAPER #1 tab.ds.pk 08/24/19 Unknown Rx (6-Day Pack, 21 Tabs)] traMADoL [Ultram] 50 mg PO Q6HR PRN #20 tablet 08/24/19 Unknown Rx Cyclobenzaprine [Flexeril] 10 mg PO QHS PRN #10 tablet 08/27/19 Unknown Rx Naproxen 500 mg PO Q12H PRN #20 tablet 08/27/19 Unknown Rx Allergies Allergy/AdvReac Type Severity Reaction Status Date / Time No Known Allergies Allergy Verified 08/05/17 00:18 ED Review of Systems ROS: Stated complaint: BACK PAIN Other details as noted in HPI Constitutional: denies: chills, fever Eyes: denies: eye pain, eye discharge, vision change ENT: denies: ear pain, throat pain Respiratory: denies: cough, shortness of breath, wheezing Cardiovascular: denies: chest pain, palpitations Endocrine: no symptoms reported Gastrointestinal: denies: abdominal pain, nausea, diarrhea Genitourinary: denies: urgency, dysuria, discharge Musculoskeletal: back pain. denies: joint swelling, arthralgia Skin: denies: rash, lesions Neurological: denies: headache, weakness, paresthesias Psychiatric: denies: anxiety, depression Hematological/Lymphatic: denies: easy bleeding, easy bruising ED Past Medical Hx - Past Medical History Previous Medical History?: Yes Hx Hypertension: Yes Hx Psychiatric Treatment: Yes Additional medical history: Back pain - Surgical History Past Surgical History?: No - Social History Smoking Status: Current Every Day Smoker Substance Use Type: Alcohol - Medications Home Medications: Home Medications Medication Instructions Recorded Confirmed Last Taken Type Wellbutrin 75 mg PO DAILY 08/04/17 08/05/17 Unknown History amLODIPine 10 mg PO DAILY 08/04/17 08/05/17 Unknown History HYDROcodone/APAP 5-325 [[place] 1 each PO Q6HR PRN #10 tablet 08/13/19 Unknown Rx 5/325] Ondansetron [Zofran Odt] 4 mg PO Q8HR PRN #20 tab.rapdis 08/24/19 Unknown Rx Prednisone [predniSONE 10 mg 10 mg PO .TAPER #1 tab.ds.pk 08/24/19 Unknown Rx (6-Day Pack, 21 Tabs)] traMADoL [Ultram] 50 mg PO Q6HR PRN #20 tablet 08/24/19 Unknown Rx Cyclobenzaprine [Flexeril] 10 mg PO QHS PRN #10 tablet 08/27/19 Unknown Rx Naproxen 500 mg PO Q12H PRN #20 tablet 08/27/19 Unknown Rx ED Physical Exam - General Limitations: No Limitations General appearance: alert, in no apparent distress - Head Head exam: Present: atraumatic, normocephalic - Eye Eye exam: Present: normal appearance - Neck Neck exam: Present: normal inspection, full ROM. Absent: tenderness, meningismus, lymphadenopathy - GI/Abdominal GI/Abdominal exam: Present: soft, normal bowel sounds. Absent: distended, tenderness, guarding, rebound, rigid, diminished bowel sounds, hyperactive bowel sounds, hypoactive bowel sounds, organomegaly, mass, bruit, pulsatile mass - Extremities Exam Extremities exam: Present: normal inspection, full ROM - Back Exam Back exam: Present: normal inspection, full ROM, paraspinal tenderness (left lumbar paraspinal area). Absent: tenderness, CVA tenderness (R), CVA tenderness (L), muscle spasm, vertebral tenderness, rash noted - Expanded Back Exam Expanded Back exam: Absent: saddle anesthesia Back exam: Negative Straight Leg Raising: Left, Right - Neurological Exam Neurological exam: Present: alert, oriented X3, normal gait - Psychiatric Psychiatric exam: Present: normal affect, normal mood - Skin Skin exam: Present: warm, dry, intact, normal color. Absent: rash ED Course Vital Signs 08/27/19 14:23 Temperature 98.3 F Pulse Rate 98 H Respiratory 18 Rate Blood Pressure 169/107 O2 Sat by Pulse 97 Oximetry - Reevaluation(s) Reevaluation #1: 08/27/19 15:11 Patient is speaking in full sentences with no signs of distress noted. ED Medical Decision Making - Medical Decision Making This is a 53-year-old female that presents with low back strain. Patient is stable was examined by me. There is no spinal tenderness. There is no cauda equina syndrome during examination. No bladder or bowel instability. Patient received Toradol 60 mg IM and prednisone in the ED which stated that her symptoms has resolved and subsided. Patient is discharged with muscle relaxant and Motrin. Patient was instructed not to operate any machinery while taking muscle relaxant as they cause her drowsiness. Patient was referred to Follow-up with a primary care doctor in 3-5 days or if symptoms worsen and continue return to emergency room as soon as possible. At time of discharge, the patient does not seem toxic or ill in appearance. No acute signs of distress noted. Patient agrees to discharge treatment plan of care. No further questions noted by the patient. This chart is dictated with using [employer] Dictation Program Critical care attestation.: If time is entered above; I have spent that time in minutes in the direct care of this critically ill patient, excluding procedure time. ED Disposition Clinical Impression: Low back strain Qualifiers: Encounter type: initial encounter Qualified Code(s): S39.012A - Strain of muscle, fascia and tendon of lower back, initial encounter Disposition: TO HOME OR SELFCARE Is pt being admited?: No Does the pt Need Aspirin: No Condition: Stable Instructions: Low Back Strain (ED), Cyclobenzaprine (By mouth) Additional Instructions: Follow-up with your primary care doctor in 3-5 days or if symptoms worsen such as bladder or bowel stability, chest pain, short of breath, numbness or tingling sensation in extremities, headache, dizziness, visual changes, nausea vomiting, or abdominal pain, return back to emergency room as was possible. Take Naproxen and Flexeril as prescribed. Do not operate heavy machinery while taking Flexeril due to sedation Prescriptions: Cyclobenzaprine [Flexeril] 10 mg PO QHS PRN #10 tablet PRN Reason: Muscle Spasm Naproxen 500 mg PO Q12H PRN #20 tablet PRN Reason: Pain , Severe (7-10) Referrals: PRIMARY CAREMD [Referring] - 3-5 Days MARÍA ARTIS MD [Staff Physician] - 3-5 Days [facility] [Provider Group] - 3-5 Days
[2019-08-27] MEDS ORDERED: ONDANSETRON 4 MG ODT TAB ONE (15:42)
[2019-08-27] MEDS ORDERED: ONDANSETRON 4 MG ODT TAB PO ONE (15:43)
== END 2019-08-27 16:20 | disposition home or self-care (01) ==
LOC: ED 14:15
DX: S39.012A Strain of muscle, fascia and tendon of lower back, initial encounter (principal); I10 Essential (primary) hypertension; F17.200 Nicotine dependence, unspecified, uncomplicated; Z79.899 Other long term (current) drug therapy; X58.XXXA Exposure to other specified factors, initial encounter; Y93.89 Activity, other specified; Y92.89 Other specified places as the place of occurrence of the external cause; Y99.8 Other external cause status
CPT/HCPCS: 96372; 99282; J1885; J7512; Q0162